=== PATIENT | female | born 1950 | race Caucasian/White ===

== ENCOUNTER 2021-04-24 10:12 | Emergency (ER) | payer MEDICARE ==
[~2021-04-24] VITALS: Ht 160 cm; Wt 97.5 kg
[~2021-04-24 10:12] MED LIST: Z.0.GLUCOPHAGE500 MG; Z.0.NEXIUM40 MG
[2021-04-24] MEDS ORDERED: AZITHROMYCIN250 MG PO (11:52)
[2021-04-24] MEDS ORDERED: AUGMENTIN 875-1 EACH PO (11:52)
[2021-04-24] MEDS ORDERED: PROVENTIL HFA6.7 GM INH (11:53)
[2021-04-24 12:11] VITALS: BP 156/78
== END 2021-04-24 12:13 | disposition home or self-care (01) ==
LOC: ER 10:17
DX: J18.9 Pneumonia, unspecified organism (principal); R06.02 Shortness of breath; Z20.822 Contact with and (suspected) exposure to COVID-19
CPT/HCPCS: 71045; 99283; U0002